=== PATIENT | male | born 2000 | race African-American/Black ===

== ENCOUNTER 2018-09-11 10:09 | Emergency (ER) | payer OTHER ==
[2018-09-11 10:20] VITALS: BP 114/58
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
== END 2018-09-11 13:06 | disposition home or self-care (01) ==
LOC: ER 10:09
DX: S73.102A Unspecified sprain of left hip, initial encounter (principal); S93.602A Unspecified sprain of left foot, initial encounter; M25.552 Pain in left hip; M79.605 Pain in left leg; M54.5 Low back pain; V03.10XA Pedestrian on foot injured in collision with car, pick-up truck or van in traffic accident, initial encounter; Y93.89 Activity, other specified; Y92.410 Unspecified street and highway as the place of occurrence of the external cause
CPT/HCPCS: 72070; 72110; 99283

== ENCOUNTER 2019-12-06 12:42 | Emergency (ER) | payer SELFPAY ==
--- NOTE | 2019-12-06 13:06 | ER Document Report ---
ED Medical Screen (RME) - General Chief Complaint: Abdominal Pain Stated Complaint: ABDOMINAL PAIN Time Seen by Provider: 12/06/19 13:03 TRAVEL OUTSIDE OF THE [place] IN LAST 30 DAYS: No - HPI Notes: 12/06/19 13:05 Patient is a 19-year-old male with no significant past medical history who presents complaining of epigastric and right upper quadrant pain that is been intermittent, but ongoing for the past couple weeks. Patient states that he does have some constipation issues as well. Denies drug allergies. No nausea, vomiting, or diarrhea. No fever. No chest pain or shortness of breath. I have treated and performed a rapid initial assessment of this patient. A comprehensive ED assessment and evaluation of the patient, analysis of test results and completion of medical decision making process will be conducted by additional ED providers. PHYSICAL EXAMINATION: GENERAL: Well-appearing, well-nourished and in no acute distress. A&Ox4. Answers questions appropriately. Abdomen: Limited exam in triage, there is noted mild tenderness to the epigastrium and right upper quadrant. - Related Data Allergies/Adverse Reactions: No Known Allergies Allergy (Verified 12/06/19 13:04) Past Medical History Renal/ Medical History: Denies: Hx Peritoneal Dialysis Past Surgical History: Reports: Hx Orthopedic Surgery - L knee
[2019-12-06 13:08] VITALS: BP 96/71
[2019-12-06 13:50] LABS: ABSOLUTE EOSINOPHILS # (AUTO) 0.2 10^3/uL (0.0-0.6); ABSOLUTE LYMPHOCYTES (AUTO) 1.5 10^3/uL (0.5-4.7); ABSOLUTE MONOCYTES (AUTO) 0.3 10^3/uL (0.1-1.4); ABSOLUTE NEUT (AUTO) 1.2 10^3/uL (1.7-8.2); BASOPHILS % (AUTO) 0.7 % (0-2); EOSINOPHILS % (AUTO) 5.2 % (0-6); HEMATOCRIT 40.6 % (37.9-51.0); HEMOGLOBIN 13.4 g/dL (13.5-17.0); LYMPHOCYTES % (AUTO) 46.3 % (13-45); MEAN CORPUSCULAR HEMOGLOBIN 28.4 pg (27.0-33.4); MEAN CORPUSCULAR HGB CONC 33.1 g/dL (32.0-36.0); MEAN CORPUSCULAR VOLUME 86 fl (80-97); PLATELET COUNT 187 10^3/uL (150-450); RED BLOOD COUNT 4.73 10^6/uL (4.35-5.55); RED CELL DISTRIBUTION WIDTH 15.1 % (11.5-14.0); SEGMENTED NEUTROPHILS % (AUTO) 38.8 % (42-78); TOTAL CELLS COUNTED % (AUTO) 100 %; WHITE BLOOD COUNT 3.2 10^3/uL (4.0-10.5)
[2019-12-06 13:54] LABS: APPEARANCE,URINE CLEAR; BILIRUBIN,URINE NEGATIVE (NEGATIVE); COLOR,URINE YELLOW; GLUCOSE, URINE NEGATIVE (NEGATIVE); KETONES,URINE NEGATIVE (NEGATIVE); PROTEIN,URINE NEGATIVE (NEGATIVE)
--- NOTE | 2019-12-06 14:04 | RADIOLOGY REPORT (SQ) ---
EXAM DESCRIPTION: U/S ABDOMEN LIMITED W/O DOP COMPLETED DATE/TIME: 12/06/2019 1:53 pm REASON FOR STUDY: ruq/epigastric pain COMPARISON: None. TECHNIQUE: Dynamic and static grayscale images acquired of the abdomen and recorded on PACS. Additio matty selected color Doppler and spectral images recorded. LIMITATIONS: None. FINDINGS: PANCREAS: No masses. Visualized pancreatic duct normal caliber. LIVER: No masses. Echotexture normal. LIVER VASCULATURE: Normal directional flow of the main portal vein and hepatic veins. GALLBLADDER: No stones. Normal wall thickness. No pericholecystic fluid. ULTRASOUND-DETECTED ALCALA'S SIGN: Negative. INTRAHEPATIC DUCTS AND COMMON DUCT: CBD and intrahepatic ducts normal caliber. No filling defects. INFERIOR VENA CAVA: Normal flow. AORTA: No aneurysm. RIGHT KIDNEY: Normal size. Normal echogenicity. No solid or suspicious masses. No hydronephrosis. No calcifications. PERITONEAL AND RIGHT PLEURAL SPACE: No ascites or effusions. OTHER: No other significant findings. IMPRESSION: NORMAL RIGHT UPPER QUADRANT ULTRASOUND. TECHNICAL DOCUMENTATION: JOB ID: [id number] 2010 [employer]- All Rights Reserved Reading location - IP/workstation name: [email or web address]
[2019-12-06 14:06] LABS: ALBUMIN 4.5 g/dL (3.5-5.0); ALKALINE PHOSPHATASE 45 U/L (38-126); ANION GAP 8 (5-19); ASPARTATE AMINO TRANSFERASE 35 U/L (17-59); BILIRUBIN,DIRECT 0.2 mg/dL (0.0-0.4); BILIRUBIN,TOTAL 0.6 mg/dL (0.2-1.3); BLOOD UREA NITROGEN 14 mg/dL (7-20); CALCIUM 9.5 mg/dL (8.4-10.2); CARBON DIOXIDE 32 mmol/L (22-30); CHLORIDE 101 mmol/L (98-107); GLUCOSE 90 mg/dL (75-110); POTASSIUM 4.8 mmol/L (3.6-5.0); TOTAL PROTEIN 7.5 g/dL (6.3-8.2)
[2019-12-06] MEDS ORDERED: MAG HYDROX/AL HYDROX/SIMETH SUSP 30 ML UDCUP PO ONE (14:07)
[2019-12-06] MEDS ORDERED: LIDOCAINE 2% VISCOUS SOLN 15 ML UDCUP PO ONE (14:07)
[2019-12-06] MEDS ORDERED: METOCLOPRAMIDE HCL ORAL SOLN 10 MG/10 ML UDCUP PO ONE (14:07)
--- NOTE | 2019-12-06 14:12 | ER Document Report ---
ED GI/ - General Chief Complaint: Abdominal Pain Stated Complaint: ABDOMINAL PAIN Time Seen by Provider: 12/06/19 13:03 Primary Care Provider: TIFFANY ALMAGUER MD [ACTIVE STAFF] - Follow up as needed NORMA JUNE MD [ACTIVE STAFF] - Follow up as needed GWEN KAPADIA MD [ACTIVE STAFF] - Follow up as needed Notes: Patient is a 19-year-old male who presents emergency department with a chief complaint of intermittent abdominal pain. Patient reports he has had intermittent abdominal pain for the past few weeks. Patient denies exacerbating symptoms such as food or beverage. Patient reports this is mostly located in the epigastric area and at times will radiate to his right upper quadrant. Patient reports that he at times does have acid reflux type symptoms. Patient has not taken any burt-fmg-brfwvbm medications. Patient denies nausea, vomiting or diarrhea. Patient denies fever. Patient denies any past medical surgical history. Patient reports that his epigastric pain feels like a burning sensati on. Patient reports he does not drink alcohol but does smoke. TRAVEL OUTSIDE OF THE [place] IN LAST 30 DAYS: No - Related Data Allergies/Adverse Reactions: No Known Allergies Allergy (Verified 12/06/19 13:04) Past Medical History - General Information source: Patient - Social History Smoking Status: Current Every Day Smoker Chew tobacco use (# tins/day): No Frequency of alcohol use: None Drug Abuse: None Lives with: Family Family History: Reviewed & Not Pertinent Patient has suicidal ideation: No Patient has homicidal ideation: No - Past Medical History Cardiac Medical History: Reports: None Pulmonary Medical History: Reports: None EENT Medical History: Reports: None Neurological Medical History: Reports: None Endocrine Medical History: Reports: None Renal/ Medical History: Reports: None. Denies: Hx Peritoneal Dialysis Malignancy Medical History: Reports None GI Medical History: Reports: None Musculoskeletal Medical History: Reports None Skin Medical History: Reports None Psychiatric Medical History: Reports: None Traumatic Medical History: Reports: None Infectious Medical History: Reports: None Past Surgical History: Reports: Hx Orthopedic Surgery - L knee Review of Systems - Review of Systems Constitutional: No symptoms reported EENT: No symptoms reported Cardiovascular: No symptoms reported Respiratory: No symptoms reported Gastrointestinal: See HPI Genitourinary: No symptoms reported Male Genitourinary: No symptoms reported Musculoskeletal: No symptoms reported Skin: No symptoms reported Hematologic/Lymphatic: No symptoms reported Neurological/Psychological: No symptoms reported Physical Exam - Vital signs Vitals: Temp Pulse Resp BP Pulse Ox 98.1 F 61 16 96/71 L 99 12/06/19 13:04 12/06/19 13:04 12/06/19 13:04 12/06/19 13:04 12/06/19 13:04 - Notes Notes: GENERAL: Well-appearing, well-nourished and in no acute distress. HEAD: Atraumatic, normocephalic. EYES: Pupils equal round and reactive to light, extraocular movements intact, sclera anicteric, conjunctiva are normal. ENT: Nares patent, oropharynx clear without exudates. Moist mucous membranes. NECK: Normal range of motion, supple without lymphadenopathy or JVD. LUNGS: Breath sounds clear to auscultation bilaterally and equal. No wheezes rales or rhonchi. HEART: Regular rate and rhythm without murmurs, rubs or gallops. ABDOMEN: Soft, mild epigastric tenderness with palpation, normoactive bowel sounds. No guarding, no rebound. No masses appreciated. BACK: No cervical, thoracic, lumbar midline tenderness. No saddle anesthesia, normal distal neurovascular exam. GENITOURINARY: Deferred. EXTREMITIES: Normal range of motion, no pitting or edema. No clubbing or cyanosis. NEUROLOGICAL: Cranial nerves II through XII grossly intact. Normal speech, normal gait. PSYCH: Normal mood, normal affect. SKIN: Warm, Dry, normal turgor, no rashes or lesions noted. Course - Re-evaluation Re-evalutation: 12/06/19 14:11 Patient's abdominal exam was benign, he does have slight epigastric discomfort with palpation. No right upper quadrant tenderness. His ultrasound was neg ative. Lab work pending. We will give the patient a GI cocktail as he reports an epigastric burning sensation and acid reflux type symptoms. Patient denies mid to lower abdominal pain. Patient denies urinary symptoms. 12/06/19 15:24 Patient was discharged in no acute distress. Patient ambulatory with a steady gait. Patient has had no nausea, vomiting or diarrhea. Patient reports his epigastric pain has subsided. - Vital Signs Vital signs: Temp Pulse Resp BP Pulse Ox 98.1 F 61 16 96/71 L 99 12/06/19 13:04 12/06/19 13:04 12/06/19 13:04 12/06/19 13:04 12/06/19 13:04 - Laboratory Result Diagrams: 12/06/19 13:22 12/06/19 13:22 Laboratory results interpreted by me: 12/06/19 12/06/19 12/06/19 13:22 13:22 13:22 WBC 3.2 L Hgb 13.4 L RDW 15.1 H Lymph % (Auto) 46.3 H Absolute Neuts (auto) 1.2 L Seg Neutrophils % 38.8 L Carbon Dioxide 32 H Urine Urobilinogen 4.0 H 12/06/19 14:24 Patient's blood work does not show leukocytosis, anemia, alteration electrolytes or kidney function. Patient's liver enzymes normal. Patient's urinalysis unremarkable. Laboratory 12/06/19 12/06/19 12/06/19 13:22 13:22 13:22 WBC 3.2 L RBC 4.73 Hgb 13.4 L Hct 40.6 MCV 86 MCH 28.4 MCHC 33.1 RDW 15.1 H Plt Count 187 Lymph % (Auto) 46.3 H [place] % (Auto) 9.0 Eos % (Auto) 5.2 Baso % (Auto) 0.7 Absolute Neuts (auto) 1.2 L Absolute Lymphs (auto) 1.5 Absolute Monos (auto) 0.3 Absolute Eos (auto) 0.2 Absolute Basos (auto) 0.0 Seg Neutrophils % 38.8 L Sodium 140.7 Potassium 4.8 Chloride 101 Carbon Dioxide 32 H Anion Gap 8 BUN 14 Creatinine 0.83 Est GFR ( Amer) > 60 Est GFR (MDRD) Non-Af > 60 Glucose 90 Calcium 9.5 Total Bilirubin 0.6 Direct Bilirubin 0.2 Neonat Total Bilirubin Not Reportable Neonat Direct Bilirubin Not Reportable Neonat Indirect Bili Not Reportable AST 35 ALT 12 Alkaline Phosphatase 45 Total Protein 7.5 Albumin 4.5 Lipase 29.8 Urine Color YELLOW Urine Appearance CLEAR Urine pH 7.0 Ur Specific [place] 1.020 Urine Protein NEGATIVE Urine Glucose (UA) NEGATIVE Urine Ketones NEGATIVE Urine Blood NEGATIVE Urine Nitrite (Reflex) NEGATIVE Urine Bilirubin NEGATIVE Urine Urobilinogen 4.0 H Leukocyte Esterase Rfl NEGATIVE Urine RBC (Auto) 1 Urine WBC (Reflex) 5 Squamous Epi Cells Auto <1 Urine Mucus (Auto) RARE Urine Ascorbic Acid NEGATIVE - Diagnostic Test Radiology reviewed: Reports reviewed Radiology results interpreted by me: 12/06/19 14:24 Abdomen Ultrasound 12/06/19 13:04 IMPRESSION: NORMAL RIGHT UPPER QUADRANT ULTRASOUND. Discharge - Discharge Clinical Impression: Epigastric abdominal pain Gastritis Qualifiers: Gastritis type: unspecified gastritis Chronicity: acute Gastritis bleeding: wit hout bleeding Qualified Code(s): K29.00 - Acute gastritis without bleeding Condition: Stable Disposition: HOME, SELF-CARE Additional Instructions: *Today was seen in the emergency department for epigastric and right upper quadrant pain. Your ultrasound was negative. At this time you do not have any abnormality with your gallbladder. Your symptoms are consistent with gastritis which is an inflammation of the stomach. To truly diagnose this you would need an upper endoscopy that was performed by sheather. I will refer you to multiple sheather here in the area. You can initiate an [id number] medication such as Pepcid. This is an acid suppressing medication. Avoid aspirin, NSAIDs such as ibuprofen, Aleve, BC powders, caffeine, tobacco and alcohol as this can worsen your symptoms. Over the next 24 to 48 hours begin with a clear liquid diet and bland foods. Try to avoid spicy foods as can exacerbate your symptoms. If the abdominal pain worsens, you develop vomiting, fever or any new or worsening abdominal pain please return to the emergency department. Gastritis You have an inflammation of the stomach called gastritis. This commonly causes upper abdominal pain, nausea, and vomiting. In severe cases, bleeding of the stomach lining can occur. Gastritis can be caused by bacteria or viruses, alcohol, or stomach-irritating drugs. Begin with sips of clear liquids. Take increasing amounts of fluid over the first 24 hours. Then start small amounts of bland foods (such as dry toast, applesauce, mashed potato). Gradually resume your usual diet. You should take antacids every two hours until the pain has subsided. Acid-suppressing drugs may be prescribed as well. Avoid aspirin, caffeine, tobacco, and alcohol. If the abdominal pain worsens, or there is evidence of major bleeding in the stomach (such as black, tarry stool, bloody or black vomit, or lightheadedness), you should return immediately. Call the doctor if you aren't improved in 24 to 36 hours. Prescriptions: Famotidine [Pepcid 20 mg Tablet] 20 mg PO DAILY #30 tablet Referrals: GWEN KAPADIA MD [ACTIVE STAFF] - Follow up as needed TIFFANY ALMAGUER MD [ACTIVE STAFF] - Follow up as needed NORMA JUNE MD [ACTIVE STAFF] - Follow up as needed
== END 2019-12-06 15:15 | disposition home or self-care (01) ==
LOC: ER 12:42
DX: K29.00 Acute gastritis without bleeding (principal); R10.13 Epigastric pain; R10.816 Epigastric abdominal tenderness; F17.200 Nicotine dependence, unspecified, uncomplicated
CPT/HCPCS: 99284; 36415; 83690; 85025; 80053; 81001; 76705; J3490